=== PATIENT | male | born 1995 | race Caucasian/White ===

== ENCOUNTER 2024-02-05 20:00 | Emergency (ER) | payer MEDICAID, SELFPAY ==
--- NOTE | 2024-02-05 20:19 | ED_ITS ---
HPI - Extremity Injury (Upper) General Chief Complaint: Wound/Laceration Stated Complaint: LT pointer finger lac Time Seen by Provider: 02/05/24 20:25 Source: patient Mode of arrival: ambulatory Limitations: no limitations History of Present Illness ED Provider: Federico Gomez PA-C HPI narrative: 28-year-old Serbian-speaking male presents to the ER for evaluation of a left index finger laceration that occurred at 15:00 today when he was using a knife to cut a box. Sustained a 1.5 cm laceration to the palmar aspect of the left pointer finger, bleeding has stopped. He is able to fully extend and flex the finger but has some tingling at the tip of the finger. Unknown last tetanus shot. complaint: injury to: left and finger Onset (ago): hour(s) Other injuries: none Handedness: right Place: home Severity: mild Relieving factors: none Exacerbating factors: none Associated symptoms: other (Tingling) Related Data Allergies Allergy/AdvReac Type Severity Reaction Status Date / Time No Known Allergies Allergy Verified 02/05/24 20:20 Review of Systems Review of Systems: Yes all other systems are reviewed and are negative FOR[facility]LY [facility], [facility] Social History Social History Advance Directives: No Advance Directives Information Provided: No Physical Exam Vital Signs: Vital Signs: Last Vital Signs Temp 97.8 F 02/05/24 20:20 Pulse 106 H 02/05/24 20:20 Resp 16 02/05/24 20:20 BP 143/96 H 02/05/24 20:20 Pulse Ox 98 02/05/24 20:20 O2 Del Method Room Air 02/05/24 20:20 BMI result Body Mass Index 29.7 Appearance: Alert. Oriented X3. No acute distress. HEENT: normal inspection CVS: Normal heart rate and rhythm. Pulses normal. Respiratory: No respiratory distress. Skin: Skin warm and dry. Normal skin color. Normal skin turgor. No rashes. Extremities: left index finger with 1.5 cm superficial laceration on the palmar aspect between DIP and PIP joints, tiny piece of visible adipose tissue visible. FROM of the digit, NV intact distall w/ cap refill <3 sec Neuro: Oriented X 3. No motor deficit. No sensory deficit. Course Course Course Narrative: This is a Rapid Medical Examination (RME) performed by Federico Gomez PA-C in triage. Full HPI, ROS, assessment and treatment plan per primary provider in the Main ED. 28 yo Serbian speaking male presents to the ER for evaluation of Plan: Medical Decision Making Medical Decision Making MDM Narrative: 28-year-old male presents to the ER for evaluation of left index finger laceration sustained on a sample box maker this afternoon. No active bleeding on arrival. Wound is superficial. Wound was irrigated and deep structures are intact. No active bleeding. He has full range of motion and is neurovascularly intact. Skin glue and Steri-Strips were used to close the wound. parts interpreter used to discussed wound care management and return precautions. He is stable for discharge home. Tdap given Differential Diagnosis Differential Diagnoses: The differential diagnosis associated with the presentation includes Superficial laceration, deep laceration, nerve injury, open finger fracture Tests considered The following testing was considered but not selected: Considered x-ray of the hand over low clinical suspicion for deeper injury or foreign body Prescription Management I considered prescription management with: Pain Medication and Antibiotic Procedures Laceration Laceration 1: Site: hand Side (If applicable): left Size (cm): 1.5 Description: linear Depth: simple, single layer Pre-repair: wound explored, irrigated extensively and deep structures intact Skin layer closed with: other (Skin glue and Steri-Strips) Critical Care Time Critical Care Time Critical Care Time: No Discharge Plan Discharge Clinical Impression: Laceration Patient Disposition: Home, Self-Care Instructions: Finger Laceration (ED) Additional Instructions: Steri-Strips and skin glue were used to closure wound today Do not get it wet for the next 48 hours Keep wound clean and covered. Do not submerge in water, no swimming. If you develop signs of infection including increased pain, swelling, redness or drainage of pus come back to the ER for further evaluation. Print Language: Serbian
[2024-02-05 20:20] VITALS: BP 143/96; PULSE 106; RESP 16; TEMP 36.6; O2SAT 98; BMI 29.7
[2024-02-05] MEDS: Diphth,Pertus(ACell),Tet Adult 0.5 ML SYRINGE IM (20:41)
[2024-02-05 20:48] VITALS: BP 143/96; PULSE 106; RESP 16; TEMP 36.6; O2SAT 98
== END 2024-02-05 20:49 | disposition home or self-care (01) ==
PROVIDERS: Emergency Provider Internal Medicine
DX: S61.211A Laceration without foreign body of left index finger without damage to nail, initial encounter (principal); W26.0XXA Contact with knife, initial encounter; Y93.89 Activity, other specified; Y92.019 Unspecified place in single-family (private) house as the place of occurrence of the external cause; Y99.9 Unspecified external cause status; Z23 Encounter for immunization
CPT/HCPCS: 12001; 90471; 90715; 99282; 99284